=== PATIENT | male | born 1990 | race Caucasian/White ===

== ENCOUNTER 2021-09-23 21:31 | Emergency (ER) | payer BC, OTHER | END 2021-09-23 23:22 | disposition home or self-care (01) | LOC: JD.ED 21:31 | DX: S80.11XA Contusion of right lower leg, initial encounter (principal); W22.8XXA Striking against or struck by other objects, initial encounter | CPT/HCPCS: 36415; 85610; 85730; 93971-26-RT; 93971-RT; 99283; 99284-25 ==